=== PATIENT | male | born 2000 | race Caucasian/White ===

== ENCOUNTER 2018-08-13 09:49 | Emergency (ER) | payer BC ==
--- OUTSIDE RECORDS SUMMARY | 2018-08-13 10:32 | XMS REPORT | Continuity of Care Document ---
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 Payers Type Date Identification Numbers Payment Provider Subscriber Effective: Policy Number: [facility] Lukasz Mata 2016 [id number] [facility] PayID: [id number] [address] [address] [place] [address] Expires: 2016 Policy Number: Lukasz Satanta Lukasz Mata [id number] [facility] PayID: [id number] [address] [address] [place] [address] Advance Directives Description No Information Available Problems Description No Information Family History Date Family Member(s) Problem(s) Comments Father 58 Father Parkinson's Disease Father Hypercholesterolemia Mother 56 First Brother 23 Social History Type Date Description Comments Sex Unknown Diet Healthy, Well Balanced Sleep Typically sleeps 8 hours a night Tobacco Use Reviewed: 06/01/18 Never Smoked Cigarettes ETOH Use Denies alcohol use Tobacco Use Reviewed: 07/31/18 Patient has never smoked Smoking Status Reviewed: 07/31/18 Patient has never smoked Exercise Type/Frequency Exercises regularly Seat Belt/Car Seat Always uses seat belt Parental Marital Status Parents Allergies, Adverse Reactions, Alerts Description No Known Drug Allergies Medications Medication Date Status Form Strength Qnty SIG Indications Ordering Provider Paroxetine HCL 07/31 Active Tablets ER 25mg 90tab 1 by mouth 24HR s daily Sarkis DENNEY MD Epiduo 07/31 Active Gel 0.1-2.5% 45gm apply to affected [place] area once MD JUMANA daily Fluticasone 06/01 Active Suspension 50mcg/Act 16gm 2 sprays each Sarkis nostril MD JUMANA every day Levocetirizine 01/06 Active Tablets 5mg 30tab 1 by mouth J30.89 Augustin Arroyo Dihydrochloride /2016 s every day MD Vignesh Ibuprofen 00 Active Tablets 200mg 3 by mouth B27.89 Unknown /0000 every 6hrs 3 times a day as needed Doxycycline 06/01 Hx Capsules 100mg 20cap 1 by mouth Rolando Hyclate s twice a Sarkis - juan francisco DENNEY MD 06/11 Cefdinir 04/30 Hx Capsules 300mg 20cap 2 by mouth J01.80 s every day Dinoravirichard - x 10d MD JUMANA 06/01 Paroxetine HCL 03/12 Hx Tablets ER 12.5mg 30tab 1 every Elda ER 24HR s day every lonnie, - night at 07/31 bedtime Cephalexin 01/26 Hx Capsules 500mg 30cap 1 by mouth Augustin Arroyo /2017 s three Vignesh, - times a 02/05 day x days Cefdinir 11/23 Hx Capsules 300mg 10cap 1 by mouth Eric Simpson s bid Daniel - 01/26 Albenza 11/17 Hx Tablets 200mg 2tabs 1 pill by L29.0 Eric Simpson /2017 mouth now. Daniel, - January repeat 01/26 in 1 Prednisone 09/29 Hx Tablets 10mg 18tab 3 by mouth John Serrano s x 3d, 2 by MD Ingrid - mouth x 3 11/17 days, 1 by mouth x 3d Lidocaine 09/29 Hx Solution 2% 45ml take 3 J02.8 Erika Pak milliliter A. - s mo Mondragon, 11/17 and haley ROBLES every 3 hrs as needed, max of 4 doses in 12 hour period No Active 11/29 Hx Unknown Medications /2016 - 01/06 Zithromax 11/12 Hx Tablets 250mg 6tabs 2 by mouth J01.80 Ernesto Simpson /2016 day 1, 1 Rob whitman MD 11/22 every x days 2-5 Fluticasone 11/12 Hx Suspension 50mcg/Act 16gm 2 sprays J01.80 Ernesto Simpson each Rob zabala MD 11/29 No Active 08/23 Hx Unknown Medications /2015 - 11/12 Medications Administered in Office Medication Date Status Form Strength Qnty SIG Indications Ordering Provider Depo-Medrol 80 Administered Injection Becky MG 017 TRIP Scott Immunizations CPT Code Status Date Vaccine Lot # [id number] Given 06/20/2017 Flu, Multi-Dose Vial W/Preservative (Age 3 Yrs And Older)Quad 0.5 25970 Given 06/23/2016 Flu, Multi-Dose Vial W/Preservative (Age 3 Yrs And Older)Quad 0.5 95166 Given 04/03/2015 Menactra - Meningococcal Conjugate Vaccine 97203 Given 04/15/2010 Menactra - Meningococcal Conjugate Vaccine 54436 Given 04/15/2010 Varicella (Chicken Pox) Vaccine 11885 Given 03/04/2009 Adacel - Tdap [facility] 18068-033-09 09/12 cc 30208 Given 05/15/2003 Poliovirus Vaccine Subcutaneous 43370 Given 05/15/2003 MMR Vaccine 71307 Given 05/15/2003 Daptacel - DTaP Vaccine 61146 Given 12/16/1999 Daptacel - DTaP Vaccine 65505 Given 09/22/1999 Poliovirus Vaccine Subcutaneous 21230 Given 09/22/1999 Hib PRP-T Conjugate 4 Dose Schedule 00967 Given 06/22/1999 MMR Vaccine 49928 Given 06/22/1999 Varicella (Chicken Pox) Vaccine 03642 Given 03/22/1999 Hepatitis B Vaccine Pediatric/Adolescent 32741 Given 1998 Daptacel - DTaP Vaccine 35496 Given 1998 Rotateq - Rotavirus Vaccine Tetravalent Oral 60731 Given 1998 Hib PRP-T Conjugate 4 Dose Schedule 16427 Given 1998 Poliovirus Vaccine Subcutaneous 11626 Given 1998 Daptacel - DTaP Vaccine 43635 Given 1998 Rotateq - Rotavirus Vaccine Tetravalent Oral 91030 Given 1998 Hib PRP-T Conjugate 4 Dose Schedule 34776 Given 1998 Hepatitis B Vaccine Pediatric/Adolescent 71861 Given 1998 Poliovirus Vaccine Subcutaneous 62424 Given 1998 Daptacel - DTaP Vaccine 45861 Given 1998 Hib PRP-T Conjugate 4 Dose Schedule 88578 Given 1998 Hepatitis B Vaccine Pediatric/Adolescent Vital Signs Date Vital Result Comment 07/31/2018 2:01pm BP Systolic 116 mmHg BP Diastolic 62 mmHg Heart Rate 80 /min Respiratory Rate 12 /min Weight 153.00 lb Weight 69.401 kg Height 72.25 inches 6'0.25" BMI (Body Mass Index) 20.6 kg/m2 06/01/2018 2:32pm BP Systolic 110 mmHg BP Diastolic 68 mmHg Heart Rate 66 /min Body Temperature 98.4 F Respiratory Rate 12 /min Weight 145.00 lb Weight 65.772 kg Weight Percentile 33rd Height 72.25 inches 6'0.25" Height Percentile 83 % BMI (Body Mass Index) 19.5 kg/m2 Body Mass Index Percentile 8 % 04/30/2018 11:44am BP Systolic 104 mmHg BP Diastolic 68 mmHg Heart Rate 48 /min Body Temperature 98.3 F Respiratory Rate 12 /min Weight 141.00 lb Weight 63.958 kg Weight Percentile 27th Height 72.25 inches 6'0.25" Height Percentile 83 % BMI (Body Mass Index) 19.0 kg/m2 Body Mass Index Percentile 5 % 03/12/2018 10:44am BP Systolic 110 mmHg BP Diastolic 70 mmHg Heart Rate 60 /min Body Temperature 98.4 F Respiratory Rate 16 /min Weight 145.00 lb Weight 65.772 kg Weight Percentile 34th Height 72.25 inches 6'0.25" Height Percentile 83 % BMI (Body Mass Index) 19.5 kg/m2 Body Mass Index Percentile 9 % 01/26/2018 8:11pm BP Systolic 122 mmHg BP Diastolic 60 mmHg Heart Rate 80 /min Body Temperature 98.4 F Respiratory Rate 16 /min Weight 147.00 lb Weight 66.679 kg Weight Percentile 38th Height 72.25 inches 6'0.25" Height Percentile 83 % BMI (Body Mass Index) 19.8 kg/m2 Body Mass Index Percentile 11 % 11/17/2017 7:54pm BP Systolic 110 mmHg BP Diastolic 60 mmHg Heart Rate 88 /min Body Temperature 99.6 F Respiratory Rate 16 /min Weight 147.00 lb Weight 66.679 kg Weight Percentile 39th Height 72.25 inches 6'0.25" Height Percentile 83 % BMI (Body Mass Index) 19.8 kg/m2 Body Mass Index Percentile 12 % 09/29/2017 6:30pm BP Systolic 110 mmHg BP Diastolic 70 mmHg Heart Rate 100 /min Body Temperature 99.4 F Respiratory Rate 18 /min Weight 148.00 lb Weight 67.133 kg Weight Percentile 41st Height 72.25 inches 6'0.25" Height Percentile 83 % BMI (Body Mass Index) 19.9 kg/m2 Body Mass Index Percentile 14 % 09/20/2017 1:24pm BP Systolic 100 mmHg BP Diastolic 60 mmHg Heart Rate 96 /min Body Temperature 98.8 F Respiratory Rate 20 /min Weight 146.00 lb Weight 66.226 kg Weight Percentile 38th Height 72.25 inches 6'0.25" Height Percentile 83 % BMI (Body Mass Index) 19.7 kg/m2 Body Mass Index Percentile 12 % 04/21/2017 11:43am BP Systolic 104 mmHg BP Diastolic 60 mmHg Heart Rate 70 /min Body Temperature 98.2 F Respiratory Rate 14 /min Weight 148.00 lb Weight 67.133 kg Weight Percentile 44th Height 72.25 inches 6'0.25" Height Percentile 84 % BMI (Body Mass Index) 19.9 kg/m2 Body Mass Index Percentile 17 % 02/01/2017 3:12pm BP Systolic 94 mmHg BP Diastolic 58 mmHg Heart Rate 64 /min Respiratory Rate 14 /min Weight 142.00 lb Weight 64.411 kg Weight Percentile 35th Height 72.25 inches 6'0.25" Height Percentile 84 % BMI (Body Mass Index) 19.1 kg/m2 Body Mass Index Percentile 9 % 01/06/2017 10:46am BP Systolic 100 mmHg BP Diastolic 60 mmHg Heart Rate 66 /min Body Temperature 98.6 F Respiratory Rate 17 /min Weight 148.00 lb Weight 67.133 kg Weight Percentile 46th Height 71.5 inches 5'11.50" Height Percentile 77 % BMI (Body Mass Index) 20.4 kg/m2 Body Mass Index Percentile 24 % 11/29/2016 8:46am BP Systolic 110 mmHg BP Diastolic 70 mmHg Heart Rate 72 /min Body Temperature 98.1 F Respiratory Rate 20 /min Weight 146.00 lb Weight 66.226 kg Weight Percentile 43rd Height 71.5 inches 5'11.50" Height Percentile 77 % BMI (Body Mass Index) 20.1 kg/m2 Body Mass Index Percentile 21 % 11/12/2016 11:30am BP Systolic 110 mmHg BP Diastolic 62 mmHg Heart Rate 72 /min Body Temperature 98.8 F Respiratory Rate 16 /min Weight 148.00 lb Weight 67.133 kg Weight Percentile 47th 11/08/2016 10:02am BP Systolic 118 mmHg BP Diastolic 60 mmHg Heart Rate 70 /min Body Temperature 97.9 F Respiratory Rate 16 /min Weight 144.38 lb Weight 65.489 kg Weight Percentile 41st Height 71.5 inches 5'11.50" Height Percentile 77 % BMI (Body Mass Index) 19.9 kg/m2 Body Mass Index Percentile 19 % 08/23/2016 1:56pm BP Systolic 96 mmHg BP Diastolic 68 mmHg Heart Rate 68 /min Body Temperature 98.1 F Respiratory Rate 14 /min Weight 141.00 lb Weight 63.958 kg Weight Percentile 36th Height 71.5 inches 5'11.50" Height Percentile 77 % BMI (Body Mass Index) 19.4 kg/m2 Body Mass Index Percentile 14 % Results Test Date Facility Test Result H/L Range Note Xray 06/01/2018 [facility] Shoulder, Complete, d6 [address] [place] [address] [phone] C.Difficile 04/30/2018 [facility] Specimen STOOL Toxin A & B Description C Diff Toxin B NEGATIVE (Neg) 027 Nap1 B1 NEGATIVE (Neg) Comment NOTE: IF REFLEX <SEE NOTE> 1 Ova+Parasites,Routine 04/30/2018 [facility] Cryptosporidium Ag Negative 2 Giardia Antigen Negative 3 Laboratory test 04/30/2018 [facility] Stool Culture Comment 4 finding W/E.Coli Eia Laboratory test 01/26/2018 [facility] A Strep Negative Negative finding CBC/Automated 12/01/2017 [facility] WBC 6.76 k/uL 4.60-10.20 Differential Denis 4.19 2.00-7.50 %N 61.9 % 37.0-80.0 Lym 1.77 K/UL 1.20-4.80 %L 26.2 % 10.0-50.0 [place] 0.651 0.000-0.900 %M 9.62 % 0.00-12.00 Eos 0.093 0.000-0.700 %E 1.38 % 0.00-7.00 Baso 0.059 0.000-0.200 %B 0.88 % 0.00-4.00 RBC 5.15 m/uL 4.04-6.13 Hemoglobin 14.8 g/dL 12.2-18.1 Hematocrit 44.5 % 42.0-53.7 MCV 86.5 fl 80.0-97.0 MCH 28.7 pg 27.0-31.2 MCHC 33.2 g/dL 31.8-35.4 RDW 11.3 % Low 11.6-14.8 PLT 238 K/uL 142-424 MPV 8.1 fL 0.0-99.9 Laboratory test 11/17/2017 [facility] Throat Culture Comment 5 finding Comprehensive 11/17/2017 [facility] Glucose 94.00 mg/dL 70.00-11 Metabolic Panel 0.00 Urea Nitrogen 12 mg/dL 9-21 CreaC 1.0 mg/dL 0.7-1.3 GFR 106.77 mL/min 6 Na-C 141 mmol/L 136-145 K-C 4.1 mmol/L 3.5-5.1 Cl-C 100 mmol/L 98-107 Total Protein 7.7 g/dL 6.4-8.3 Alb P 4.50 g/dL 3.30-5.00 Alanine Aminotransferase 15 U/L 0-55 Aspartate Aminotransferase 17 U/L 5-34 Alkaline Phosphatase 122 U/L 40-150 Carbon Dioxide 29.00 mmol/L 22.00-31.00 BUN/CR 12.50 10.00-20.00 A/G 2.41 1.46-2.46 Osmo 291.51 275.00-295.00 CaC 9.90 mg/dL 8.90-10.40 Total Bilirubin 1.0 mg/dL 0.2-1.2 Glob 2 3.20 2.30-4.20 CBC/Automated 11/17/2017 [facility] WBC 13.20 k/uL High 4.60-10.20 Differential Denis 10.30 High 2.00-7.50 %N 77.9 % 37.0-80.0 Lym 1.25 K/UL 1.20-4.80 %L 9.5 % Low 10.0-50.0 [place] 1.510 High 0.000-0.900 %M 11.40 % 0.00-12.00 Eos 0.084 0.000-0.700 %E 0.63 % 0.00-7.00 Baso 0.070 0.000-0.200 %B 0.53 % 0.00-4.00 RBC 5.15 m/uL 4.04-6.13 Hemoglobin 15.0 g/dL 12.2-18.1 Hematocrit 44.9 % 42.0-53.7 MCV 87.1 fl 80.0-97.0 MCH 29.0 pg 27.0-31.2 MCHC 33.4 g/dL 31.8-35.4 RDW 11.0 % Low 11.6-14.8 PLT 192 K/uL 142-424 MPV 8.3 fL 0.0-99.9 Laboratory test 11/17/2017 [facility] TSH 1.356 uIU/mL 0.350-4.940 finding Ebv Acute Infection 11/17/2017 [facility] Ebv Vca Igg NEGATIVE (Neg ) Antibodies @ Ebv Vca Igm @ POSITIVE Abnormal (Neg) 7 Ebv Early Ag Igg @ POSITIVE Abnormal (Neg) 8 Ebv Nuclear Ag Igg @ NEGATIVE (Neg) 9 Laboratory test 11/17/2017 [facility] A Strep Negative Negative finding Laboratory test 09/29/2017 [facility] A Strep Negative Negative finding Laboratory test 09/29/2017 [facility] Throat Culture Comment 10 finding Laboratory test 09/20/2017 [facility] Influenza-New Negative Negative finding Molecular Laboratory test 09/20/2017 [facility] [place] Spot Positive A! Negative 11 finding Comprehensive 09/20/2017 [facility] Glucose 84.00 mg/dL 70.00- 110.00 Metabolic Panel Urea Nitrogen 10 mg/dL 9-21 CreaC 0.9 mg/dL 0.7-1.3 GFR 123.07 mL/min 12 Na-C 140 mmol/L 136-145 K-C 4.4 mmol/L 3.5-5.1 Cl-C 103 mmol/L 98-107 Total Protein 7.6 g/dL 6.4-8.3 Alb P 4.40 g/dL 3.30-5.00 Alanine Aminotransferase 25 U/L 0-55 Aspartate Aminotransferase 31 U/L 5-34 Alkaline Phosphatase 128 U/L 40-150 Carbon Dioxide 30.00 mmol/L 22.00-31.00 BUN/CR 11.76 10.00-20.00 A/G 2.38 1.46-2.46 Osmo 288.24 275.00-295.00 CaC 9.70 mg/dL 8.90-10.40 Total Bilirubin 1.3 mg/dL High 0.2-1.2 Glob 2 3.20 2.30-4.20 CBC/Automated Differential 09/20/2017 [facility] WBC 6.31 k/uL 4.60 -10.20 Denis 1.90 Low 2.00-7.50 %N 30.1 % Low 37.0-80.0 Lym 3.08 K/UL 1.20-4.80 %L 48.8 % 10.0-50.0 [place] 1.240 High 0.000-0.900 %M 19.70 % High 0.00-12.00 Eos 0.064 0.000-0.700 %E 1.01 % 0.00-7.00 Baso 0.032 0.000-0.200 %B 0.51 % 0.00-4.00 RBC 4.98 m/uL 4.04-6.13 Hemoglobin 15.0 g/dL 12.2-18.1 Hematocrit 43.2 % 42.0-53.7 MCV 86.8 fl 80.0-97.0 MCH 30.1 pg 27.0-31.2 MCHC 34.6 g/dL 31.8-35.4 RDW 10.5 % Low 11.6-14.8 PLT 153 K/uL 142-424 MPV 8.0 fL 0.0-99.9 CBC/Automated Differential 11/12/2016 [facility] WBC 6.57 k/uL 4.60 -10.20 Denis 4.35 2.00-7.50 %N 66.3 % 37.0-80.0 Lym 1.43 K/UL 1.20-4.80 %L 21.8 % 10.0-50.0 [place] 0.631 0.000-0.900 %M 9.60 % 0.00-12.00 Eos 0.098 0.000-0.700 %E 1.49 % 0.00-7.00 Baso 0.059 0.000-0.200 %B 0.90 % 0.00-4.00 RBC 5.00 m/uL 4.04-6.13 Hemoglobin 15.3 g/dL 12.2-18.1 Hematocrit 46.3 % 42.0-53.7 MCV 92.6 fl 80.0-97.0 MCH 30.6 pg 27.0-31.2 MCHC 33.1 g/dL 31.8-35.4 RDW 11.1 % Low 11.6-14.8 PLT 199 K/uL 142-424 MPV 8.7 fL 0.0-99.9 Comprehensive 11/12/2016 [facility] Glucose 118.00 mg/dL High 70.00- 110.00 Metabolic Panel Urea Nitrogen 11 mg/dL 9-21 CreaC 0.8 mg/dL 0.7-1.3 GFR 131.31 mL/min 13 Na-C 142 mmol/L 136-145 K-C 4.7 mmol/L 3.5-5.1 Cl-C 103 mmol/L 98-107 Total Protein 7.1 g/dL 6.4-8.3 Alb P 3.90 g/dL 3.30-5.00 Alanine Aminotransferase 12 U/L 0-55 Aspartate Aminotransferase 19 U/L 5-34 Alkaline Phosphatase 128 U/L 55-367 Carbon Dioxide 30.00 mmol/L 22.00-31.00 BUN/CR 13.58 10.00-20.00 A/G 2.22 1.46-2.46 Osmo 294.48 275.00-295.00 CaC 9.40 mg/dL 8.90-10.40 Total Bilirubin 0.6 mg/dL 0.2-1.2 Glob 2 3.20 2.30-4.20 Laboratory test 11/12/2016 [facility] [place] Spot Negative Negative finding Laboratory test 11/12/2016 [facility] A Strep Negative Negative finding Laboratory test 11/08/2016 [facility] A Strep Negative Negative finding 1 NOTE: IF REFLEX CULTURE FOR KLEBSIELLA OXYTOCA IS CLINICALLY INDICATED, PLEASE CONTACT THE [facility]CROBIOLOGY LABORATORY ([phone]) WITHIN 3 DAYS OF THIS REPORT. Unless otherwise specified, testing performed by [facility] [address] [place] [id number] 2 Reference range: Negative Performed by [facility], [address] [facility] [place] [address] www.[employer], Aniceto Carey MD, Lab. Director 3 Reference range: Negative Performed by [facility], [address] [facility] [place] [place] [address] www[facility], Aniceto Carey MD, Lab. Director Unless otherwise specified, testing performed by [facility] [address] [place] [address] 4 SPECIMEN DESCRIPTION STOOL SPECIAL REQUESTS NONE RESULT POSITIVE FOR NOROVIRUS GROUP 1/2 BY PCR. NOTE: THIS MOLECULAR ASSAY DETECTS THE FOLLOWING ENTERIC PATHOGENS: CAMPYLOBACTER GROUP (COLI, JEJUNI, TANO), SALMONELLA SPECIES, SHIGELLA SPECIES (DYSENTERIAE, BOYDII, SONNEI, FLEXNERI), VIBRIO GROUP (CHOLERAE, PARAHAEMOLYTICUS), YERSINIA ENTEROCOLITICA, SHIGA TOXIN 1, SHIGA TOXIN 2, NOROVIRUS GROUP 1 AND 2, ROTAVIRUS A. REPORT STATUS FINAL 05/01/2018 Unless otherwise specified, testing performed by [facility] [address] [place] [address] 5 SPECIMEN DESCRIPTION THROAT SWAB CULTURE RESULTS MANY BETA HEMOLYTIC STREPTOCOCCI GROUP C REPORT STATUS FINAL 11/19/2017 Unless otherwise specified, testing performed by [facility] [address] [place] [id number] 6 NORMAL FUNCTION OR MILD RENAL DISEASE:>60 ml/min ADVANCED RENAL DISEASE:15-59 ml/min RENAL FAILURE:<15 ml/min 7 May indicate a current or recent infection. 8 May indicate a current or previous infection. 9 Unless otherwise specified, testing performed by [facility] [address] [place] [address] 10 SPECIMEN DESCRIPTION THROAT SWAB CULTURE RESULTS NORMAL THROAT SHEFALI NEGATIVE FOR BETA HEMOLYTIC STREPTOCOCCI GROUPS A,C OR G. REPORT STATUS FINAL 10/01/2017 Unless otherwise specified, testing performed by [facility] [address] [place] [address] 11 Delivered critical result to : Dr Koenig 12 NORMAL FUNCTION OR MILD RENAL DISEASE:>60 ml/min ADVANCED RENAL DISEASE:15-59 ml/min RENAL FAILURE:<15 ml/min 13 NORMAL FUNCTION OR MILD RENAL DISEASE:>60 ml/min ADVANCED RENAL DISEASE:15-59 ml/min RENAL FAILURE:<15 ml/min Procedures Date Code Description Status 06/01/2018 62346 X-Ray Shoulder Complete Completed 04/30/2018 03678 X-Ray Chest 2 Views Completed 01/26/2018 82598 Electrocardiogram Complete Completed Encounters Type Date Location Provider Dx Diagnosis Office Visit 07/31/2018 Main Office Rolando Dockery JR, F41.1 Generalized anxiety 1:45p MD disorder J01.80 Other acute sinusitis M25.511 Pain in right shoulder Office Visit 06/01/2018 2:15p Main Office Becky Scott J01.80 Other acute PA-C sinusitis M25.511 Pain in right shoulder R19.4 Change in bowel habit Office Visit 04/30/2018 10:30a Main Office Rolando Dockery F41.1 Generalized anxiety MD JUMANA disorder R63.4 Abnormal weight loss R19.7 Diarrhea, unspecified J01.80 Other acute sinusitis Office Visit 03/12/2018 10:30a Main Office Rolando Dockery JR, MD R00.2 Palpitations F41.1 Generalized anxiety disorder Office Visit 01/26/2018 7:45p Main Office Augustin Medellin MD R00.2 Palpitations R07.0 Pain in throat Office Visit 11/17/2017 7:45p Main Office JEAN Dumont R07.0 Pain in throat M79.1 Myalgia L29.0 Pruritus ani Office Visit 09/29/2017 6:00p Main Office Erika Serrano B27.89 Other infectious MD Alanna mononucleosis with other complication J02.8 Acute pharyngitis due to other specified organisms Office Visit 09/20/2017 1:00p Main Office Gutierrez Koenig PA-C R05 Cough R51 Headache D48.5 Neoplasm of uncertain behavior of skin R59.0 Localized enlarged lymph nodes Office Visit 04/21/2017 11:15a Main Office Gutierrez Koenig PA-C R51 Headache Office Visit 02/01/2017 2:15p Main Office Rolando Dockery Z00.00 Encntr florencio benjamin JR, MD adult medical exam w/o abnormal findings Office Visit 01/06/2017 10:15a Main Office Becky Scott J30.89 Other allergic PA-C rhinitis Office Visit 11/29/2016 8:30a Main Office Sravanthi Gambino, R59.0 Localized enlarged PA-C lymph nodes Office Visit 11/12/2016 11:15a Main Office Sravanthi Gambino, R07.0 Pain in throat PA-C J01.80 Other acute sinusitis R04.0 Epistaxis Office Visit 11/08/2016 9:45a Main Office Anju Vargas R07.0 Pain in throat Radha PRESSURE DISPATCHER-BC Office Visit 08/23/2016 1:15p Main Office Rolando Dockery JR J01.80 Other acute MD sinusitis Plan of Treatment Future Appointment(s):09/18/2018 2:45 pm - Rolando Dockery JR, MD at Main [id number]/31/2018 - Rolando Dockery JR, MDF41.1 Generalized anxiety disorderComments:Will increase the Paroxetine to 25mg daily as discussed. Discussed emotional triggers and ways to manage anxiety/stress. Advised identifying and avoiding triggers as much as possible. Discussed importance of good communication with family/friends. Counseling options discussed. Advised to continue prescription management the same. Advised the patient to exercise as tolerated to increase mood and relieve stress. Encouraged positivity. Advised to call with any changes or concerns.J01.80 Other acute sinusitisComments:Due to chronic sinus infections, will obtain CT of the sinuses.Referral:[facility], Radiology/Clinic/CTRM25.511 Pain in right shoulderComments:Slight scoliosis of the spine. This likely is the cause of the ache in shoulder. Patient advised that he can continue with working out, this isn't a concern at this time.Follow up:Followup:. (Follow up)AllNew Medication:Paroxetine HCL ER 25 mg - 1 by mouth dailyEpiduo 0.1-2.5 % - apply to affected area once daily
--- NOTE | 2018-08-13 10:34 | ED ---
Abdominal Pain/Male - HPI Summary HPI Summary: This pt is a 18 y/o male presenting to [facility] c/o left sided abd pain since this morning. Pt reports upon waking up this morning he had abd pain on the left side. He describes non-radiating pain and stabbing pain. He rated his pain then 8 or 9 out of 10 in severity. Pt then felt nauseous and got shivers and shakes. Pt currently reports his pain has subsided now, rating his abd pain 4/10 in severity. Denies fever, testicular pain, diarrhea, constipation, chest pain, SOB. Denies any PMHx. No surgeries in the past. Denies tobacco, drug, and alcohol use. - History of Current Complaint Chief Complaint: EDAbdPain Stated Complaint: ABD PAIN/NAUSEA Time Seen by Provider: 08/13/18 10:05 Hx Obtained From: Patient Onset/Duration: Lasting Hours, Still Present Timing: Lasting Hours Severity Initially: Severe - 8 or 9 out of 10 Severity Currently: Moderate Pain Intensity: 4 Pain Scale Used: 0-10 Numeric Location: Other - left sided abd pain Radiates: No Character: Other: - stabbing pain Aggravating Factor(s): Nothing Alleviating Factor(s): Nothing Associated Signs And Symptoms: Positive: Nausea. Negative: Fever, Chest Pain, Constipation, Vomiting, Diarrhea, Other - testicular pain, SOB - Allergies/Home Medications Allergies/Adverse Reactions: Allergies Allergy/AdvReac Type Severity Reaction Status Date / Time banana Allergy Itching Verified 08/13/18 09:59 [place] And Derivatives Allergy Itching Verified 08/13/18 09:59 Home Medications: Home Medications NK [No Home Medications Reported] 08/13/18 [History Confirmed 08/13/18] PMH/Surg Hx/FS Hx/Imm Hx Endocrine/Hematology History: Denies: Hx Diabetes Respiratory History: Denies: Hx Asthma Neurological History: Denies: Hx Seizures - Surgical History Surgery Procedure, Year, and Place: none Infectious Disease History: No Infectious Disease History: Denies: Traveled Outside the [place] in Last 30 Days - Family History Known Family History: Negative: Cardiac Disease, Hypertension, Diabetes - Social History Alcohol Use: None Substance Use Type: Reports: None Smoking Status (MU): Never Smoked Tobacco Review of Systems Positive: Chills. Negative: Fever Negative: Chest Pain Negative: Shortness Of Breath Positive: Abdominal Pain, Nausea. Negative: Vomiting, Diarrhea, Other - constipation Negative: pain Musculoskeletal: Negative Skin: Negative All Other Systems Reviewed And Are Negative: Yes Physical Exam - Summary Physical Exam Summary: VITAL SIGNS: Reviewed. GENERAL: Patient is a well-developed and nourished male who is lying comfortable in the stretcher. Patient is not in any acute respiratory distress. HEAD AND FACE: Normocephalic and atraumatic. EYES: PERRLA, EOMI x 2, No injected conjunctiva. EARS: Hearing grossly intact. Ear canals and tympanic membranes are WNL. MOUTH: Oropharynx within normal limits. NECK: Supple, trachea is midline, no adenopathy, no JVD. CHEST: Symmetric, no tenderness at palpation LUNGS: Clear to auscultation bilaterally. No wheezing or crackles. CVS: RRR, S1 and S2 present, no murmurs or gallops appreciated. ABDOMEN: Soft, left lower quadrant tenderness. No signs of distention. Positive bowel sounds. No rebound no guarding, and no masses palpated. No abdominal bruit or pulsations. Left flank tenderness. EXTREMITIES: FROM in all major joints, no edema, no cyanosis or clubbing. NEURO: Alert and oriented x 3. No acute neurological deficits. Speech is normal. SKIN: Dry and warm Triage Information Reviewed: Yes Vital Signs On Initial Exam: Initial Vitals Temp Pulse Resp BP Pulse Ox 98.4 F 69 16 119/61 98 08/13/18 09:56 08/13/18 09:56 08/13/18 09:56 08/13/18 09:56 08/13/18 09:56 Vital Signs Reviewed: Yes Diagnostics - Vital Signs Vital Signs Temp Pulse Resp BP Pulse Ox 08/13/18 09:56 98.4 F 69 16 119/61 98 - Laboratory Result Diagrams: 08/13/18 10:30 08/13/18 10:30 Lab Statement: Any lab studies that have been ordered have been reviewed, and results considered in the medical decision making process. - Radiology Abdomen/Pelvis CT Radiology Interpretation Completed By: Radiologist Summary of Radiographic Findings: IMPRESSION: No evidence of obstructive uropathy is noted. No other masses or fluid collections are noted. Dr. Evans has reviewed this report. Abdominal Pain Fem Course/Dx - Course Assessment/Plan: This pt is a 18 y/o male presenting to [facility] c/o left sided abd pain since this morning. Pt reports upon waking up this morning he had abd pain on the left side. He describes non-radiating pain and stabbing pain. He rated his pain then 8 or 9 out of 10 in severity. Pt then felt nauseous and got shivers and shakes. Pt currently reports his pain has subsided now, rating his abd pain 4/10 in severity. Denies fever, testicular pain, diarrhea, constipation , chest pain, SOB. Denies any PMHx. No surgeries in the past. Denies tobacco, drug, and alcohol use. Blood work without any significant abnormality except for glucose of 117. Abdominal pelvic CT impression: No evidence of obstructive uropathy is noted. No other masses or fluid collections are noted. At this point the patient is feeling better the pain has subsided, he does not have any nausea or vomiting. Since there is no abnormal findings in the workup and on the CAT scan the patient will be discharged home with follow-up from primary care physician. Patient is hemodynamically stable. I discussed all the findings and test results with the patient. Patient was instructed to return to the emergency room immediately if any of the symptoms return or worsens. Plan of care was discussed with the patient and understands and agrees. All questions were answered at patient satisfaction. There were no further complaints or concerns. Lung exam before discharge: CTA B/L. Good air exchange. No wheezing or crackles heard. CVS: S1 and S2 present. No murmurs appreciated. Patient is alert and oriented x 3. Patient is hemodynamically stable. Patient will be discharged home with follow up PCP in the next 2-3 days. - Diagnoses Provider Diagnoses: Left lateral abdominal pain, Flank pain Discharge - Sign-Out/Discharge Documenting (check all that apply): Patient Departure - discharge home - Discharge Plan Condition: Stable Disposition: HOME Patient Education Materials: Abdominal Pain (ED) [facility] - Additional Instructions: FOLLOW UP WITH YOUR PRIMARY CARE PROVIDER WITHIN 2-3 DAYS. RETURN TO THE ED FOR ANY NEW OR WORSENING SYMPTOMS. - Billing Disposition and Condition Condition: STABLE Disposition: Home - Attestation Statements Document Initiated by Scribe: Yes Documenting Scribe: Madina Malik Provider For Whom Scribe is Documenting (Include Credential): Tenzin Evans MD Scribe Attestation: Madina Kenny scribed for Tenzin Evans MD on 08/13/18 at 1846. Scribe Documentation Reviewed: Yes Provider Attestation: The documentation as recorded by the scribeMadina accurately reflects the service I personally performed and the decisions made by me, Tenzin Evans MD Status of Scribe Document: Viewed
[2018-08-13 10:55] LABS: Hematocrit 44 % (42-52); Hemoglobin 15.3 g/dl (14.0-18.0); Mean Corpuscular HGB Conc 35 g/dl (31-36); Mean Corpuscular Hemoglobin 31 pg (27-31); Mean Corpuscular Volume 89 fL (80-94); Platelet Count 211 10^3/ul (150-450); Red Blood Count 4.93 10^6/ul (4.00-5.40); Red Cell Distribution Width 13 % (10.5-15); White Blood Count 9.8 10^3/ul (3.5-10.8)
[2018-08-13 11:05] LABS: ABS Basophils 0 10^3/ul (0-0.2); ABS Eosinophils 0.1 10^3/ul (0-0.6); ABS Lymphocytes 1.5 10^3/ul (1.0-4.8); ABS Monocytes 0.9 10^3/ul (0-0.8); ABS Neutrophils 6.8 10^3/ul (1.5-7.7); ABS Nucleated RBC 0 10^3/ul; Eosinophil % 0.8 %; Lymphocyte % 16.4 %; Nucleated Red Blood Cells % 0
[2018-08-13 11:09] LABS: EGFR Non-African American 104.9 (>60)
[2018-08-13 11:49] LABS: Urine Appearance Clear; Urine Blood Negative (Negative); Urine Color Yellow; Urine Ketones Negative (Negative); Urine Protein Negative (Negative); Urine Specific Gravity 1.018 (1.010-1.030); Urine Urobilinogen Negative (Negative)
[2018-08-13 12:20] VITALS: BP 114/62
== END 2018-08-13 12:20 | disposition home or self-care (01) ==
LOC: ED 09:49
DX: R10.32 Left lower quadrant pain (principal); R11.0 Nausea
CPT/HCPCS: 36415; 74176; 80053; 81003; 83605; 83690; 85025; 86140; 99282